=== PATIENT | female | born 1995 | race Caucasian/White ===

== ENCOUNTER 2019-02-20 09:09 | Outpatient (CLI) | payer BC ==
--- NOTE | 2019-02-20 09:58 | ULT ---
PELVIC ULTRASOUND: History: Abdominal uterine bleeding. FINDINGS: Real-time imaging of the pelvis was obtained transabdominally. This shows a uterus measuring 5.5 x 5. 9 x 8.2 cm in size. The endometrium is thickened measuring 1.1 cm. Small follicle is seen involving the left ovary. The right ovary is difficult to visualize but appear s unremarkable. DOPPLER EVALUATION WITH SPECTRAL ANALYSIS: Normal flow is shown to both adnexa. The patient refused the transvaginal exam. IMPRESSION: Mildly thickened endometrium, otherwise unremarkable study. POS: OFF
== END 2019-02-20 09:10 | disposition home or self-care (01) ==
LOC: SCSULT 09:09
DX: N93.8 Other specified abnormal uterine and vaginal bleeding (principal); R93.89 Abnormal findings on diagnostic imaging of other specified body structures
CPT/HCPCS: 76856; 93976